=== PATIENT | female | born 1985 | race African-American/Black ===

== ENCOUNTER 2017-08-06 21:21 | Observation (INO) | payer OTHER ==
[2017-08-06 21:49] VITALS: BMI 36.5
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
[2017-08-06] MEDS ORDERED: DIPHTH,PERTUSS(ACELL),TET 0.5 ML DISP.SYRIN IM ONE (23:50)
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
[2017-08-07 00:25] LABS: BASO % 0.2 % (0-2.0); HEMATOCRIT 39.6 % (32.4-45.2); HEMOGLOBIN 12.5 GM/dL (10.7-15.3); LYMPH % 6.3 % (8-40); MCH 24.7 pg (25.7-33.7); MCHC 31.5 g/dl (32.0-36.0); MEAN CELL VOLUME 78.4 fl (80-96); MEAN PLT VOLUME 10.6 fl (7.5-11.1); MONO % 3.7 % (3.8-10.2); NEUT % 89.8 % (42.8-82.8); PLATELET COUNT 253 K/MM3 (134-434); RBC 5.06 M/mm3 (3.60-5.2); RDW 14.4 % (11.6-15.6); WHITE BLOOD COUNT 12.5 K/mm3 (4.0-10.0)
[2017-08-07 00:37] LABS: INR 0.99 (0.82-1.09); PROTHROMBIN TIME (PATIENT) 11.2 SEC (9.98-11.88)
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
[2017-08-07] MEDS ORDERED: oxyCODONE HCL 5 MG TABLET PO PRN (01:07)
[2017-08-07] MEDS ORDERED: ACETAMINOPHEN 325 MG TABLET (FP) PO PRN (01:07)
[2017-08-07 01:12] LABS: ALBUMIN 3.7 g/dl (3.4-5.0); ANION GAP 10 (8-16); BLOOD UREA NITROGEN 16 mg/dL (7-18); CALCIUM 8.9 mg/dL (8.5-10.1); CHLORIDE 102 mmol/L (98-107); CO2 26 mmol/L (21-32); CREATININE 0.7 mg/dL (0.55-1.02); GLUCOSE,RANDOM 110 mg/dL (74-106); POTASSIUM 4.2 mmol/L (3.5-5.1); SGOT/AST 18 U/L (15-37); SGPT/ALT 26 U/L (12-78); SODIUM 138 mmol/L (136-145); TOT PROT 7.8 g/dl (6.4-8.2)
[2017-08-07 01:14] LABS: ALK PHOS 125 U/L (45-117); BILIRUBIN,TOTAL 0.2 mg/dL (0.2-1.0)
[2017-08-07] MEDS ORDERED: SODIUM CHLORIDE 1,000 ML IV SCH (01:15)
[2017-08-07] MEDS ORDERED: oxyCODONE HCL 5 MG TABLET ONE ×2 (01:44→11:32)
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
[2017-08-07] MEDS ORDERED: MORPHINE SULFATE 10 MG/1 ML *VIAL IVPUSH PRN (06:13)
[2017-08-07] MEDS ORDERED: ACETAMINOPHEN 325 MG TABLET (FP) ONE (11:31)
[2017-08-07] MEDS: oxyCODONE HCL 5 MG TABLET PO PRN ×2 (11:36→23:06)
[2017-08-07] MEDS: ACETAMINOPHEN 325 MG TABLET (FP) PO PRN (11:39)
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
[2017-08-07] MEDS ORDERED: FLU VACCINE QUAD 60 MCG/0.5 ML (MDV 17-18) IM ONE (16:15)
[2017-08-07 16:43] LABS: URINE APPEARANCE CLOUDY; URINE BILIRUBIN NEGATIVE (NEGATIVE); URINE BLOOD 3+ (NEGATIVE); URINE GLUCOSE (UA) 1+ (NEGATIVE); URINE KETONE NEGATIVE (NEGATIVE); URINE NITRITE NEGATIVE (NEGATIVE); URINE UROBILINOGEN NEGATIVE mg/dL (0.2-1.0)
[2017-08-07 16:45] LABS: URINE COLOR RED; URINE LEUK ESTERASE 1+ (NEGATIVE); URINE PROTEIN 2+ (NEGATIVE)
[2017-08-07 16:49] LABS: EPI CELLS RARE /HPF (FEW); URINE MUCUS MODERATE
[2017-08-07] MEDS: PANTOPRAZOLE 40 MG TABLET (FP) PO SCH (17:38)
[2017-08-07] MEDS: ENOXAPARIN NA (PORCINE) 40 MG/0.4 ML DISP.SYRIN SQ SCH (17:38)
[2017-08-07] MEDS ORDERED: PT OWN MED DRAWER 7, Y5N ONE (21:30)
--- NOTE | 2017-08-07 22:09 | CONSULT ---
Consult - text type - Consultation Consultation Note: FULL CONSULT DICTATED IMp; TRANSVERSE RIGHT HUMERAL SHAFT FX WITH MILD NUMBNESS IN THE RADIAL NERVE DISTRIBUTION PLAN: CLOSED TREATMENT IN [place] SPLINT, DC HOME IN AM A=ND F/U MY OFFICE X 1 WEEK
[2017-08-07] MEDS: CLARITHROMYCIN 500 MG TABLET (UD) PO SCH (22:50)
[2017-08-07] MEDS: AMOXICILLIN 500 MG CAPSULE (FP) PO SCH (22:50)
[2017-08-08] MEDS: oxyCODONE HCL 5 MG TABLET PO PRN ×2 (06:55→11:24)
--- NOTE | 2017-08-08 07:45 | CONS ---
DATE OF CONSULTATION: 08/07/2017 The patient is a 32-year-old female status post a fall, landing on her right arm. Negative LOC. Presents to the emergency room complaining of significant pain and numbness in her fingers. PAST MEDICAL HISTORY: Significant for significant obesity and multiple C-sections. PHYSICAL EXAMINATION: She is in a well-padded sugar-tong splint and a sling. She has decreased sensation, especially in the radial distribution, but she does have good extension of her wrist and of her thumb and of her fingers and good motion otherwise of elbow, wrist, and fingers. Neurovascularly intact. X-rays show a transverse right mid to distal 1/3 humeral shaft fracture in acceptable alignment. The fracture pattern is mostly transverse with slight comminution. IMPRESSION: Right transverse mid to distal 1/3 humeral shaft fracture with slight numbness in the radial nerve distribution, but no motor deficits, as patient is quite comfortable in the sugar-tong splint. We will try to electively treat her conservatively. She can go home and will follow up in my office in 1 week's time to check progression of the fracture. LUDA CLINTON M.D. [id number]
[2017-08-08 08:28] LABS: BASO % 0.3 % (0-2.0); EOS % 1.4 % (0-4.5); HEMOGLOBIN 10.8 GM/dL (10.7-15.3); LYMPH % 28.5 % (8-40); MCH 24.2 pg (25.7-33.7); MEAN CELL VOLUME 78.2 fl (80-96); MEAN PLT VOLUME 10.4 fl (7.5-11.1); MONO % 7.5 % (3.8-10.2); NEUT % 62.3 % (42.8-82.8); PLATELET COUNT 231 K/MM3 (134-434); RBC 4.47 M/mm3 (3.60-5.2); RDW 14.5 % (11.6-15.6); WHITE BLOOD COUNT 6.4 K/mm3 (4.0-10.0)
[2017-08-08 08:53] LABS: INR 1.1 (0.82-1.09); PROTHROMBIN TIME (PATIENT) 12.4 SEC (9.98-11.88)
[2017-08-08 09:00] LABS: ANION GAP 9 (8-16); BLOOD UREA NITROGEN 13 mg/dL (7-18); CALCIUM 8.3 mg/dL (8.5-10.1); CHLORIDE 104 mmol/L (98-107); CO2 26 mmol/L (21-32); CREATININE 0.7 mg/dL (0.55-1.02); GLUCOSE,RANDOM 109 mg/dL (74-106); POTASSIUM 3.8 mmol/L (3.5-5.1); SODIUM 139 mmol/L (136-145)
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
[2017-08-08] MEDS ORDERED: PT OWN MED DRAWER 7, Y5N ONE (09:23)
[2017-08-08] MEDS: PANTOPRAZOLE 40 MG TABLET (FP) PO SCH (09:25)
[2017-08-08] MEDS: AMOXICILLIN 500 MG CAPSULE (FP) PO SCH (09:25)
[2017-08-08] MEDS: CLARITHROMYCIN 500 MG TABLET (UD) PO SCH (09:26)
[2017-08-08] MEDS: ENOXAPARIN NA (PORCINE) 40 MG/0.4 ML DISP.SYRIN SQ SCH (09:27)
[2017-08-08 10:36] VITALS: TEMP 98.5
[2017-08-08] MEDS: ACETAMINOPHEN 325 MG TABLET (FP) PO PRN (11:24)
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
[2017-08-08 13:30] VITALS: BP 105/56; PULSE 88
== END 2017-08-08 13:36 | disposition home or self-care (01) ==
LOC: JER 21:21 → JERBED 08-07 00:18 → J6S 08-07 15:31
PROVIDERS: ADMIT Internal Medicine; ATTEND Internal Medicine
PROC: 2W38X1Z Immobilization of Right Upper Extremity using Splint (ICD-10-PCS; principal; 2017-08-07)
PROC: 3E0234Z Introduction of Serum, Toxoid and Vaccine into Muscle, Percutaneous Approach (ICD-10-PCS; 2017-08-07)
DX: S42.301A Unspecified fracture of shaft of humerus, right arm, initial encounter for closed fracture (principal); S09.90XA Unspecified injury of head, initial encounter; V48.4XXA Person boarding or alighting a car injured in noncollision transport accident, initial encounter; Y93.89 Activity, other specified; Y92.410 Unspecified street and highway as the place of occurrence of the external cause; E66.9 Obesity, unspecified; Z68.36 Body mass index [BMI] 36.0-36.9, adult; S00.81XA Abrasion of other part of head, initial encounter; D72.829 Elevated white blood cell count, unspecified; R73.03 Prediabetes
CPT/HCPCS: 29105; 36415; 70450-TC; 70486-TC; 73060-TC-RT; 73070-TC-RT; 73110-TC-RT; 80048; 80053; 81003; 81015; 83036; 84703; 85025; 85610; 85730; 86850; 86900; 86901; 90471; 90688; 90715; 99285-25; G0378

== ENCOUNTER 2017-10-21 06:12 | Inpatient (IN) | payer OTHER ==
[2017-10-20 15:40] VITALS: BMI 38.7
[~2017-10-21 06:12] MED LIST: BUPIVACAINE HCL/PF 0.5% (5MG/ML) 10 ML VIAL IJ ONE
--- NOTE | 2017-10-21 07:25 | HP ---
History & Physical Update - History History: No Change - Physical Physical: No Change - Assessment Assessment: No Change - Plan Plan: No Change (no interval changes since visit with Filemon Amos on 10/06/17 )
[2017-10-21] MEDS ORDERED: ROPIVACAINE HCL 0.5% 30ML VIAL ONE (07:50)
[2017-10-21] MEDS ORDERED: DEXAMETHASONE SOD PHOSPHATE/PF 10 MG/ML SDV ONE (07:50)
[2017-10-21] MEDS ORDERED: MIDAZOLAM HCL 2 MG/2 ML SINGLE DOSE VIAL ONE ×2 (07:51)
[2017-10-21] MEDS ORDERED: BUPIVACAINE HCL/PF 0.5% (5MG/ML) 10 ML VIAL ONE (08:06)
[2017-10-21] MEDS ORDERED: DESFLURANE GAS 240 ML BOTTLE IH ONE (08:47)
[2017-10-21] MEDS ORDERED: PROPOFOL 20 ML ONE (08:49)
[2017-10-21] MEDS ORDERED: fentaNYL CITRATE 250 MCG/5 ML VIAL ONE ×2 (08:49→11:00)
[2017-10-21] MEDS ORDERED: ROCURONIUM BROMIDE 50 MG/5 ML VIAL ONE ×2 (08:49)
[2017-10-21] MEDS ORDERED: ceFAZolin SODIUM 1 GM VIAL IVPB ONE (09:04)
[2017-10-21] MEDS ORDERED: GLYCOPYRROLATE 0.2 MG/1 ML VIAL ONE ×2 (10:41)
[2017-10-21] MEDS ORDERED: DEXAMETHASONE SOD PHOSPHATE 4 MG/1 ML VIAL ONE (10:41)
[2017-10-21] MEDS ORDERED: KETOROLAC TROMETHAMINE 30 MG/1 ML VIAL ONE (10:41)
[2017-10-21] MEDS ORDERED: NEOSTIGMINE METHYLSULFATE 0.5 MG/ML - 10 ML MDV ONE (10:41)
[2017-10-21] MEDS ORDERED: ceFAZolin SODIUM 1 GM VIAL ONE ×2 (10:41)
[2017-10-21] MEDS ORDERED: BUPIVACAINE HCL/PF 0.5% (5MG/ML) 10 ML VIAL IJ ONE (11:05)
[2017-10-21] MEDS: SODIUM CHLORIDE 1,000 ML IV SCH ×2 (11:30→20:01)
--- NOTE | 2017-10-21 11:38 | OP ---
Operative Note - Note: Operative Date: 10/21/17 Pre-Operative Diagnosis: Morbid obesity. Diabetes. BMI 38.8 Operation: Laparoscopic vertical sleeve gastrectomy, wedge liver biopsy, EGD Post-Operative Diagnosis: Other (Morbid obesity, BMI 38., diabetes, hepatomegaly ) Surgeon: Cheko Buchanan Lusterer: Janina Proctor Anesthesia: General Specimens Removed: Greater curvature of stomach. Liver biopsy Estimated Blood Loss (mls): 50 Drains & Tubes with Location: 36 fr Bougie Operative Report Dictated: Yes
[2017-10-21] MEDS ORDERED: PROMETHAZINE HCL 25 MG/1 ML VIAL IVPUSH PRN (11:42)
[2017-10-21] MEDS ORDERED: oxyCODONE HCL 5 MG TABLET PO PRN (11:42)
[2017-10-21] MEDS ORDERED: ONDANSETRON 4 MG/2 ML VIAL IVPUSH PRN (11:42)
[2017-10-21] MEDS ORDERED: LACTATED RINGERS SOLUTION 1,000 ML IV SCH (11:45)
[2017-10-21] MEDS ORDERED: FAMOTIDINE 20 MG/50 ML IVPB 20 MG/50 ML MG IVPB ONE (11:46)
--- NOTE | 2017-10-21 11:49 | SPEC ---
DATE OF OPERATION: 10/21/2017 SURGEON: Kevon Buchanan MD KNITTED CLOTH EXAMINER: TRANG Capellan PREOPERATIVE DIAGNOSES: 1. Morbid obesity. 2. Body mass index of 38.8. 3. Type 2 diabetes. POSTOPERATIVE DIAGNOSES: 1. Morbid obesity. 2. Body mass index of 38.8. 3. Type 2 diabetes. 4. Hepatomegaly. PROCEDURES: 1. Laparoscopic vertical sleeve gastrectomy. 2. Laparoscopic wedge liver biopsy. 3. Upper endoscopy/esophagogastroduodenoscopy. SPECIMENS: 1. Greater curvature of the stomach. 2. Liver biopsy. ESTIMATED BLOOD LOSS: 50 mL DRAINS: None. ANESTHESIA: GET. BOUGIE SIZE: 36-[place]. REASON FOR PROCEDURE: This is a 32-year-old female who presented for weight loss options. After describing different options, decided to proceed with a laparoscopic, possible open vertical sleeve gastrectomy. RISKS AND BENEFITS: After describing the different options for weight loss management, the patient decided to proceed with a laparoscopic, possible open vertical sleeve gastrectomy. The patient was seen by the respective subspecialties and cleared for surgery. The risks and benefits of the procedure were explained. These included bleeding, infection, hernia, MS, DVT, PE, injury to surrounding structures including the liver, colon, bowel, spleen, esophagus, vessel injury, nerve injury, weight regain, gastric leak, staple line leak, sleeve leak, obstruction, vitamin deficiency, hair loss, and as some of the possible complications. The patient understood and signed informed consent. DESCRIPTION OF PROCEDURE: The patient was placed supine on the operating room table. The patient underwent general endotracheal intubation. A Bates catheter was inserted. The arms were brought out at 90 degrees and secured. A foot board was placed, and the legs were secured laterally with padding. The abdomen was prepped and draped in the usual sterile fashion. A timeout was performed. An incision was made in the left upper quadrant, and a Veress needle inserted. Pneumoperitoneum was established. Subsequently, the Veress needle was removed, and a 12-mm trocar was placed. The laparoscopic camera was inserted, and inspection of the abdominal cavity was performed. An incision was made in the supraumbilical region, and a 15-mm trocar placed under direct visualization. A 5-mm trocar was then placed in the right upper quadrant, and a 5-mm trocar placed below the left subcostal margin. A stab wound was made in the subxiphoid area, and a Abigail clamp inserted and removed to dilate the tract. A Genoveva liver retractor was inserted. The post was secured at the bedside by the nursing staff. The patient was placed in steep reverse Trendelenburg position. The Genoveva liver retractor was used to secure the liver towards the anterior abdominal wall. The pylorus was identified and 6 cm proximal to it, the lesser sac was entered using the Ligasure device. All lateral attachments to the greater curvature of the stomach including the short gastric vessels were ligated using the Ligasure device toward the gastrosplenic and gastrophrenic ligaments. Once this was done in its entirety, it was confirmed that all tubes within the nasal or oropharyngeal cavity including a temperature probe was removed by Anesthesia. The bougie was then inserted by Anesthesia. Transection of the stomach was then begun staying adjacent to the bougie but away from the angularis. Transection of the stomach was performed near the portion of the stomach where the lesser sac was entered. Two laparoscopic Endo-ALLISON black loads were used at this location. Laparoscopic Endo-ALLISON purple loads were then used for the remainder of the transection until the greater curvature of the stomach was fully transected. This was done staying close to the bougie. Care was taken to stay away from the angle of His cephalad. The staple line was then inspected. Hemostasis was identified. A leak test was then performed. The stomach was clamped distally to the staple line. Irrigation solution was placed in the left upper quadrant, and air insufflated by Anesthesia into the sleeve. No leaks were identified, and no obstruction was identified. This was done throughout the entirety of the staple line. At this point, the irrigation solution was suctioned, and again hemostasis noted. The 15-mm supraumbilical trocar was then removed, and the specimen removed from the site using a sponge stick browne. The specimen was inspected, and a Veress needle inserted. The specimen insufflated adequately, and no leak was identified. The staple line was noted to be intact. A Bryan Amalia device was then used to temporarily close the fascia with a 0 Vicryl suture at this site. The 15-mm trocar was then reinserted, and the 12-mm trocar in the left upper quadrant removed. The fascia at this site was then closed using a Bryan Amalia device with a 0 Vicryl suture. Again, hemostasis was noted. The Genoveva liver retractor was then removed under direct visualization. Pneumoperitoneum was desufflated, and the fascial sutures were secured. Hemostasis was noted at all incision sites, and Marcaine was injected at all incision sites. All incision sites were closed using 4-0 Biosyn. Sterile dressings were applied. The patient tolerated the procedure well, and was transferred to the recovery room in stable condition with the Bates catheter intact. The patient was transferred to telemetry for further monitoring. KEVON BUCHANAN M.D. [id number]
[2017-10-21] MEDS: ACETAMINOPHEN 1000 MG/100 ML VIAL (NON FORMULARY) IVPB SCH ×3 (11:50→22:59)
[2017-10-21] MEDS: FAMOTIDINE 20 MG/50 ML IVPB 20 MG/50 ML MG IVPB SCH (12:00)
[2017-10-21] MEDS ORDERED: FAMOTIDINE 20 MG PREMIXED IVPB IVPB ONE (12:00)
[2017-10-21 12:16] LABS: HEMATOCRIT 37.5 % (32.4-45.2); HEMOGLOBIN 11.9 GM/dL (10.7-15.3); MCH 24.1 pg (25.7-33.7); MCHC 31.6 g/dl (32.0-36.0); MEAN CELL VOLUME 76.2 fl (80-96); MEAN PLT VOLUME 9.7 fl (7.5-11.1); PLATELET COUNT 246 K/MM3 (134-434); RBC 4.93 M/mm3 (3.60-5.2); RDW 15.5 % (11.6-15.6); WHITE BLOOD COUNT 7.2 K/mm3 (4.0-10.0)
[2017-10-21 12:42] LABS: ALBUMIN 3.3 g/dl (3.4-5.0); ANION GAP 6 (8-16); BILIRUBIN,TOTAL 0.2 mg/dL (0.2-1.0); BLOOD UREA NITROGEN 16 mg/dL (7-18); CALCIUM 8.1 mg/dL (8.5-10.1); CHLORIDE 107 mmol/L (98-107); CO2 24 mmol/L (21-32); CREATININE 0.7 mg/dL (0.55-1.02); GLUCOSE,RANDOM 147 mg/dL (74-106); POTASSIUM 4.4 mmol/L (3.5-5.1); SGOT/AST 63 U/L (15-37); SGPT/ALT 63 U/L (12-78); SODIUM 137 mmol/L (136-145); TOT PROT 7.1 g/dl (6.4-8.2)
[2017-10-21 12:43] LABS: ALK PHOS 148 U/L (45-117)
[2017-10-21] MEDS: ONDANSETRON 4 MG/2 ML VIAL IVPUSH SCH ×4 (12:45→23:00)
[2017-10-21] MEDS: METOCLOPRAMIDE HCL INJECTION 10 MG/2 ML VIAL IVPUSH SCH ×3 (13:15→23:00)
[2017-10-21] MEDS ORDERED: MORPHINE SULFATE 10 MG/1 ML *VIAL ONE (15:56)
[2017-10-21] MEDS: morphine CARPU-JECT 4 MG/1 ML DISP.SYRIN IVPUSH PRN ×2 (16:00→22:20)
[2017-10-21] MEDS ORDERED: ONDANSETRON 4 MG/2 ML VIAL ONE (16:23)
--- NOTE | 2017-10-21 17:23 | SURG ---
Surgery Visitor Services Information Assistant Note Visitor Services Information Assistant: Janina Proctor PA-C Date of Service: 10/21/17 Diagnosis: morbid obesity, diabetes, hepatomegaly Procedure: Laparoscopic vertical sleeve gastrectomy, wedge liver biopsy, EGD I was present for the entirety of the operative procedure. For further detail, please refer to operative report. Visit type - Case Type Case Type: Scheduled Admission - Emergency Emergency Visit: No - New patient This patient is new to me today: Yes Date on this admission: 10/21/17
[2017-10-21] MEDS: ENOXAPARIN NA (PORCINE) 40 MG/0.4 ML DISP.SYRIN SQ SCH (22:11)
[2017-10-21] MEDS: morphine SULFATE 4 MG/ML VIAL IVPUSH PRN (22:20)
[2017-10-22] MEDS: SODIUM CHLORIDE 1,000 ML IV SCH ×5 (02:26→21:26)
[2017-10-22] MEDS: ONDANSETRON 4 MG/2 ML VIAL IVPUSH SCH ×5 (03:18→20:02)
[2017-10-22] MEDS: morphine SULFATE 4 MG/ML VIAL IVPUSH PRN ×4 (05:07→20:00)
[2017-10-22] MEDS: METOCLOPRAMIDE HCL INJECTION 10 MG/2 ML VIAL IVPUSH SCH ×3 (05:07→17:59)
[2017-10-22] MEDS: ACETAMINOPHEN 1000 MG/100 ML VIAL (NON FORMULARY) IVPB SCH (05:08)
[2017-10-22 07:10] LABS: HEMATOCRIT 32.8 % (32.4-45.2); HEMOGLOBIN 10.7 GM/dL (10.7-15.3); MCH 24.6 pg (25.7-33.7); MCHC 32.5 g/dl (32.0-36.0); MEAN CELL VOLUME 75.6 fl (80-96); MEAN PLT VOLUME 10.2 fl (7.5-11.1); PLATELET COUNT 242 K/MM3 (134-434); RBC 4.34 M/mm3 (3.60-5.2); RDW 15.6 % (11.6-15.6); WHITE BLOOD COUNT 10.8 K/mm3 (4.0-10.0)
[2017-10-22 08:05] LABS: ALBUMIN 2.7 g/dl (3.4-5.0); ANION GAP 8 (8-16); BILIRUBIN,TOTAL 0.4 mg/dL (0.2-1.0); BLOOD UREA NITROGEN 8 mg/dL (7-18); CALCIUM 7.5 mg/dL (8.5-10.1); CHLORIDE 107 mmol/L (98-107); CO2 24 mmol/L (21-32); CREATININE 0.5 mg/dL (0.55-1.02); GLUCOSE,RANDOM 117 mg/dL (74-106); POTASSIUM 3.8 mmol/L (3.5-5.1); SGOT/AST 71 U/L (15-37); SGPT/ALT 70 U/L (12-78); SODIUM 139 mmol/L (136-145); TOT PROT 6.2 g/dl (6.4-8.2)
[2017-10-22 08:06] LABS: ALK PHOS 118 U/L (45-117)
[2017-10-22] MEDS: FAMOTIDINE 20 MG/50 ML IVPB 20 MG/50 ML MG IVPB SCH ×2 (10:12→21:25)
[2017-10-22] MEDS: ENOXAPARIN NA (PORCINE) 40 MG/0.4 ML DISP.SYRIN SQ SCH ×2 (10:13→22:23)
--- NOTE | 2017-10-22 10:47 | PN ---
Progress Note (short form) - Note Progress Note: Post op day#1.S/p Laproscopic gastric sleeve placement under GA uneventful.Patient stable.No any anesthesia related problem.Patient DC from the anesthesia care.
--- NOTE | 2017-10-22 12:51 | PN ---
Progress Note (short form) - Note Progress Note: POD #1 Alert. Doing well. C/o mild incisional tenderness. Adequate pain control via prn meds. Voiding spontaneously. Denies n/v/f/c, CP or SOB. AVSS. Afebrile Gen: alert. nad. ABD: obese. All surgical ports intact. No hematoma. LE: soft. NT. Bilat UGI: no extravastion, leak or outlet obstruction. <Randy Christianson - Last Filed: 10/22/17 12:48> - Note Progress Note: Agree POD 1 Pain controlled Vital Signs Period Temp Pulse Resp BP Sys/Oh Pulse Ox Last 24 Hr 97.7 F-98.2 F 74-99 16-25 108-127/68-85 92-95 Abd soft CBC, BMP 10/22/17 06:00 04 06:00 UGI: no leak/obstruction Clears Ambulate <Cheko Buchanan - Last Filed: 10/22/17 19:20> Problem List - Problems (1) Morbid (severe) obesity due to excess calories Assessment/Plan: POD #1 s/p Laparoscopic sleeve gastrectomy, wedge liver bx intra-op egd 1. Start Bariatric stage 1 diet 2. OOB and ambulate 3. Pain management prn 4. GI ppx 5. DVT ppx 6. dc planning in AM Code(s): E66.01 - MORBID (SEVERE) OBESITY DUE TO EXCESS CALORIES <Randy Christianson P - Last Filed: 10/22/17 12:48>
--- NOTE | 2017-10-22 17:10 | PATH ---
Surgical Pathology Report Patient Name: GEMMA RANDOLPH [facility]. Rec. #: [id number] /Age/Gender: 1985 (Age: 32) / F Account: [id number] Location: 4 SO PEDS/ADOL Taken: 10/21/2017 Received: 10/21/2017 Reported: 10/22/2017 Physicians: Cheko Buchanan M.D. Specimen(s) Received A: BX LIVER B: GREATER CURVATURE STOMACH Clinical History Morbid obesity Final Diagnosis A. LIVER, BIOPSY: LIVER PARENCHYMA WITH MILD STEATOSIS (< 5%). NO INCREASE IN IRON AND FIBROSIS ON PERFORMED SPECIAL STAINS (IRON AND TRICHROME). B. STOMACH, GREATER CURVATURE, LAPAROSCOPIC VERTICAL SLEEVE GASTRECTOMY: PORTION OF STOMACH WITH MILD CHRONIC GASTRITIS. IMMUNOHISTOCHEMICAL STAIN FOR H. PYLORI IS NEGATIVE. Electronically Signed Val Sánchez M.D. Gross Description A. Received in formalin, labeled" liver biopsy" is a delgado liver tissue with cautery artifact measuring 2 x 1 x 0.3 cm. Ski Lift Attendant sections are submitted in one cassette. B. Received in formalin, labeled "greater curvature of stomach," is a 17 x 4 x 2 cm. portion of stomach with a stapled margin of resection. The serosa is delgado-colmenares with minimal attached fat. The mucosa is delgado-pink with normal folds. No mucosal masses are identified. Ski Lift Attendant sections are submitted in one cassette. lokesh/10/21/2017
[2017-10-23] MEDS: METOCLOPRAMIDE HCL INJECTION 10 MG/2 ML VIAL IVPUSH SCH ×4 (00:26→17:57)
[2017-10-23] MEDS: ONDANSETRON 4 MG/2 ML VIAL IVPUSH SCH ×6 (00:26→19:59)
[2017-10-23] MEDS: morphine SULFATE 4 MG/ML VIAL IVPUSH PRN ×4 (00:47→20:03)
[2017-10-23] MEDS: ENOXAPARIN NA (PORCINE) 40 MG/0.4 ML DISP.SYRIN SQ SCH ×2 (10:53→21:59)
[2017-10-23] MEDS: FAMOTIDINE 20 MG/50 ML IVPB 20 MG/50 ML MG IVPB SCH ×2 (10:53→21:59)
--- NOTE | 2017-10-23 16:00 | CON.PULM ---
Consult Consult Specialty:: PULM/CCM Referred by:: Surgery Reason for Consultation:: SOB / Hypoxemia - History of Present Illness Chief Complaint: S/P SLeeve History of Present Illness: 32 F, morbid obesity, no OSAS by NPSG on 08/2017, and DM. POD #1 from a laparoscopic vertical sleeve gastrectomy, wedge liver biopsy, and EGD. No kasey-operative complications noted. Patient noted to be hypoxic to the mid 80's on RA. Saturation 95% on 2 L NC O2. She is awake and alert and in NAD. She denies CP or SOB. No cough or sputum production. Very mild, appropriate abdominal discomfort to palpation. - History Source History Provided By: Patient Limitations to Obtaining History: Language Barrier - Past Medical History ...LMP: 09/23/17 - Alcohol/Substance Use Hx Alcohol Use: Yes (occas) - Smoking History Smoking history: Never smoked Have you smoked in the past 12 months: No Home Medications - Allergies Allergies/Adverse Reactions: Allergies Allergy/AdvReac Type Severity Reaction Status Date / Time No Known Allergies Allergy Verified 10/20/17 15:44 - Home Medications Home Medications: Ambulatory Orders Famotidine [Pepcid] 20 mg PO BID #60 tablet 10/21/17 Oxycodone HCl/Acetaminophen [Percocet 5-325 mg Tablet] 1 - 2 tab PO Q6H #28 tab MDD 4 10/21/17 Review of Systems - Review of Systems Constitutional: denies: Chills, Fever, Loss of Appetite, Malaise, Night Sweats, Weakness Eyes: reports: No Symptoms HENT: reports: No Symptoms Neck: reports: No Symptoms Cardiovascular: reports: No Symptoms Respiratory: reports: No Symptoms Gastrointestinal: reports: No Symptoms Genitourinary: reports: No Symptoms Breasts: reports: No Symptoms Reported Musculoskeletal: reports: No Symptoms Integumentary: reports: No Symptoms Neurological: reports: No Symptoms Endocrine: reports: No Symptoms Hematology/Lymphatic: reports: No Symptoms Psychiatric: reports: No Symptoms Physical Exam Vital Sings: Vital Signs Temperature 99.9 F H 10/23/17 13:20 Pulse Rate 97 H 10/23/17 13:20 Respiratory Rate 20 10/23/17 13:20 Blood Pressure 128/67 10/23/17 13:20 O2 Sat by Pulse Oximetry (%) 95 10/23/17 04:14 Constitutional: Yes: No Distress, Calm, Obese Eyes: Yes: Conjunctiva Clear, EOM Intact HENT: Yes: Atraumatic, Normocephalic, Other Neck: Yes: Supple Cardiovascular: Yes: Regular Rate and Rhythm Respiratory: Yes: CTA Bilaterally, Diminished, On Nasal O2. No: Accessory Muscle Use, Cough, Orthopnea, Rales, Rhonchi, SOB, SOB on Exertion, Stridor, Tachypnea, Wheezes ...Inspection: Yes: WNL ...Clubbing: No Gastrointestinal: Yes: Normal Bowel Sounds, Soft, Abdomen, Obese, Tenderness. No: Melena, Pulsatile Mass, Vomiting Renal/: Yes: WNL Musculoskeletal: Yes: WNL Extremities: Yes: WNL Edema: No Peripheral Pulses WNL: Yes Integumentary: Yes: WNL Neurological: Yes: WNL, Alert, Oriented ...Motor Strength: WNL Psychiatric: Yes: WNL, Alert, Oriented Labs: CBC, BMP 10/22/17 06:00 10/22/17 06:00 Problem List - Problems (1) Hypoxemia Code(s): R09.02 - HYPOXEMIA (2) Hepatomegaly Code(s): R16.0 - HEPATOMEGALY, NOT ELSEWHERE CLASSIFIED (3) Morbid (severe) obesity due to excess calories Code(s): E66.01 - MORBID (SEVERE) OBESITY DUE TO EXCESS CALORIES Assessment/Plan Suspected hypoxemia due to atelectasis (normal saturation on NPSG) STAT CXR O2 supplementation No ABX indicated Incentive Spirometry: I suspect that after this her saturations will be improved and there is no Pulmonary contraindication for D/C Do not suspect more significant pathology due to the paucity of symptoms. Will follow Dr Hickman
[2017-10-23] MEDS: SODIUM CHLORIDE 1,000 ML IV SCH (16:16)
[2017-10-24] MEDS: ONDANSETRON 4 MG/2 ML VIAL IVPUSH SCH ×3 (00:13→08:19)
[2017-10-24] MEDS: METOCLOPRAMIDE HCL INJECTION 10 MG/2 ML VIAL IVPUSH SCH ×2 (00:13→05:27)
[2017-10-24] MEDS: morphine SULFATE 4 MG/ML VIAL IVPUSH PRN ×3 (00:29→08:25)
--- NOTE | 2017-10-24 08:58 | PN ---
Progress Note (short form) - Note Progress Note: Kept for low oxygen saturation Pulmonary consulted CXR shows atelectasis Using incentive spirometer Vital Signs Period Temp Pulse Resp BP Sys/Oh Pulse Ox Last 24 Hr 98.6 F-100 F 97-109 20-20 122-140/67-82 86-88 Abd soft Tolerating clears Explained the importance of ambulation and incentive spirometer Oxygen saturation improved Cleared by pulmonary Discharge home
[2017-10-24] MEDS: FAMOTIDINE 20 MG/50 ML IVPB 20 MG/50 ML MG IVPB SCH (09:40)
[2017-10-24] MEDS: ENOXAPARIN NA (PORCINE) 40 MG/0.4 ML DISP.SYRIN SQ SCH (09:40)
[2017-10-24 10:08] VITALS: BP 127/90; PULSE 101; TEMP 98.4
== END 2017-10-24 11:41 | disposition home or self-care (01) | DRG 403 ==
LOC: JSAMEDAYSX 06:12 → EDSTATUS 09:00 → J4S 17:20
PROVIDERS: ADMIT Surgery; ATTEND Surgery
PROC: 0FB04ZX Excision of Liver, Percutaneous Endoscopic Approach, Diagnostic (ICD-10-PCS; 2017-10-21)
PROC: 0DJ08ZZ Inspection of Upper Intestinal Tract, Via Natural or Artificial Opening Endoscopic (ICD-10-PCS; 2017-10-21)
PROC: 0DB64Z3 Excision of Stomach, Percutaneous Endoscopic Approach, Vertical (ICD-10-PCS; principal; 2017-10-21 08:00)
DX: E66.01 Morbid (severe) obesity due to excess calories (principal); Z68.38 Body mass index [BMI] 38.0-38.9, adult; E11.9 Type 2 diabetes mellitus without complications; R16.0 Hepatomegaly, not elsewhere classified; R09.02 Hypoxemia
CPT/HCPCS: 36415; 71046-TC-FY; 74241-TC-FY; 80053; 84703; 85027; 86850; 86900; 86901; 94010; 94760; J0131; J7030